=== PATIENT | female | born 1980 | race Caucasian/White ===

== ENCOUNTER 2017-12-21 09:42 | Inpatient (IN) | payer MEDICAID ==
[2017-12-21] VITALS (7 sets, daily range): BP systolic 110–179; BP diastolic 65–94
[~2017-12-21] VITALS: Ht 162.6 cm; Wt 71.0 kg
[~2017-12-21 09:42] MED LIST: CLIN150C99 PO; CLON-527 PO; KEP500T PO; LORA-269 PO; MECL12.5 PO; ONDA4TAB59 PO
[2017-12-21 10:11] LABS: BASOPHILS # (AUTO) 0.1 X10'3 (0-0.2); BASOPHILS % (AUTO) 0.6 % (0-1); EOSINOPHILS % (AUTO) 0.3 % (0-6); HEMATOCRIT 43.4 % (35.0-45.0); HEMOGLOBIN 14.6 g/dl (12.0-16.0); LYMPHOCYTES # (AUTO) 2.5 X10'3 (1.1-4.8); LYMPHOCYTES % (AUTO) 23.5 % (21-51); MEAN CORPUSCULAR HEMOGLOBIN 28.4 PG (27.0-31.0); MEAN CORPUSCULAR HGB CONC 33.6 % (33.0-36.5); MEAN CORPUSCULAR VOLUME 84.5 FL (78-98); MEAN PLATELET VOLUME 7.5 FL (7.4-10.4); MONOCYTES # (AUTO) 0.5 X10'3 (0-0.9); MONOCYTES % (AUTO) 5.1 % (2-12); NEUTROPHILS # (AUTO) 7.4 X10'3 (1.8-7.7); NEUTROPHILS % (AUTO) 70.5 % (42-75); PLATELET COUNT 298 X10'3 (140-440); RED BLOOD COUNT 5.14 X10'6 (4.20-5.60); RED CELL DISTRIBUTION WIDTH 13.5 % (11.5-14.5); WHITE BLOOD COUNT 10.4 X10'3 (4.5-11.0)
[2017-12-21 10:19] LABS: INR 0.9 INR; PROTHROMBIN TIME 9.8 SECONDS (9.0-12.0)
[2017-12-21 10:25] LABS: ALANINE AMINOTRANSFERASE 35 U/L (12-78); ALBUMIN 3.9 G/DL (3.4-5.0); ALBUMIN/GLOBULIN RATIO 0.9 (1.1-1.5); ALKALINE PHOSPHATASE 49 IU/L (46-116); ANION GAP 10 (8-16); ASPARTATE AMINO TRANSFERASE 23 U/L (10-37); BILIRUBIN,TOTAL 0.3 MG/DL (0.1-1.0); BLOOD UREA NITROGEN 12 MG/DL (7-18); BUN/CREATININE RATIO 13.5 (6.6-38.0); CALCIUM 9.9 MG/DL (8.5-10.1); CHLORIDE 103 MMOL/L (99-107); CREATININE 0.89 MG/DL (0.40-0.90); GLUCOSE 112 MG/DL (70-104); POTASSIUM 4.1 MMOL/L (3.5-5.1); SODIUM 138 MMOL/L (135-145); TOTAL CARBON DIOXIDE 24.6 MMOL/L (24-32); TOTAL PROTEIN 8.2 G/DL (6.4-8.2); eGFR 72 ML/MIN
[2017-12-21] MEDS ORDERED: normal saline 1000ml 1,000 ML IV ONE (11:10)
[2017-12-21] MEDS ORDERED: HYDROmorphone 1 mg/ml syringe IV ONE (11:10)
[2017-12-21] MEDS ORDERED: ondansetron/PF 4mg/2ml inj IV ONE (11:10)
[2017-12-21] MEDS ORDERED: famotidine/PF 10 mg/ml inj IV ONE (11:55)
[2017-12-21] MEDS ORDERED: octreotide inj. 1,250 MCG in normal saline 250ml IV soln 250 ML IV ONE (11:55)
[2017-12-21] MEDS ORDERED: pantoprazole 40 MG vial IV ONE (11:55)
[2017-12-21] MEDS ORDERED: normal saline 1000ML IV soln IV ONE (11:55)
[2017-12-21] MEDS ORDERED: metoclopramide 5 mg/ml inj IV ONE ×2 (12:15→13:30)
[2017-12-21] MEDS ORDERED: LORA-269 PO (13:02)
[2017-12-21] MEDS ORDERED: IBUP-24 PO (13:03)
[2017-12-21] MEDS ORDERED: potassium Cl 40MEQ/NS 500ml 500 ML IV PRN ×2 (13:15)
[2017-12-21] MEDS ORDERED: dextrose 50%-water 50ml dispensing syringe IV PRN (13:15)
[2017-12-21] MEDS ORDERED: magnesium 4gm in 100ml NS 100 ML IV PRN (13:15)
[2017-12-21] MEDS ORDERED: morphine 4 MG/ML inj SYRINge IV PRN (13:15)
[2017-12-21] MEDS ORDERED: LORazepam 2 mg/ml vial IV PRN (13:15)
[2017-12-21] MEDS ORDERED: acetaminophen 325mg tablet PO PRN (13:15)
[2017-12-21] MEDS ORDERED: ondansetron/PF 4mg/2ml inj IV PRN (13:15)
[2017-12-21] MEDS ORDERED: magnesium 1gm/100ml D5W IVPB 100 ML IV PRN (13:15)
[2017-12-21] MEDS ORDERED: magnesium Cl slow-release 64mg tablet PO PRN (13:15)
[2017-12-21] MEDS ORDERED: potassium Cl 20 mEq SR tablet PO PRN ×2 (13:15)
[2017-12-21] MEDS: pantoprazole 40MG/NS 100ML BAG 100 ML IV SCH ×4 (13:18→22:56)
[2017-12-21] MEDS ORDERED: morphine 4 MG/ML inj SYRINge IV ONE (13:30)
[2017-12-21] MEDS ORDERED: fentaNYL/PF 50MCG/1 ML 2ML syringe ONE (13:31)
[2017-12-21] MEDS ORDERED: MIDAZolam 5mg/5ml vial ONE (13:31)
[2017-12-21] MEDS ORDERED: LIDOcaine Viscous 15ml cup ONE (13:32)
[2017-12-21] MEDS ORDERED: pantoprazole 40MG/NS 100ML BAG 100 ML IV SCH ×2 (16:00)
[2017-12-21 16:27] LABS: URINE HCG NEGATIVE (NEG)
[2017-12-21 16:30] LABS: CLARITY,URINE CLEAR (Clear); COLOR,URINE YELLOW (Yellow); GLUCOSE, URINE NEGATIVE (Neg); KETONES,URINE 15 mg/dl (Neg); LEUKOCYTE ESTERASE ,URINE NEGATIVE (Neg); NITRITES, URINE NEGATIVE (Neg); OCCULT BLOOD,URINE NEGATIVE (Neg); PH,URINE 6.5 (4.8-8.0); PROTEIN,URINE NEGATIVE (Neg); UROBILINOGEN,URINE 0.2 E.U/dL (0.2-1.0)
[2017-12-21 16:31] LABS: UA COLLECTION TYPE CLN CATCH MIDSTREAM
[2017-12-21 16:41] LABS: URINE AMPHETAMINE SCREEN NEGATIVE (Neg); URINE BARBITUATE SCREEN NEGATIVE (Neg); URINE BENZODIAZEPINES SCREEN POSITIVE (Neg); URINE CANNABINOID SCREEN POSITIVE (Neg); URINE COCAINE SCREEN NEGATIVE (Neg); URINE METHADONE SCREEN NEGATIVE (Neg); URINE OPIATE SCREEN POSITIVE (Neg); URINE PHENCYCLIDINE SCREEN NEGATIVE (Neg)
[2017-12-21] MEDS: normal saline 1000ml 1,000 ML IV SCH ×2 (17:26→19:47)
[2017-12-21] MEDS: morphine 4 MG/ML inj SYRINge IV PRN (20:47)
[2017-12-22] VITALS: BP 124/79
[2017-12-22] MEDS: morphine 4 MG/ML inj SYRINge IV PRN ×2 (03:14→09:18)
[2017-12-22] MEDS: pantoprazole 40MG/NS 100ML BAG 100 ML IV SCH (03:32)
[2017-12-22 05:13] LABS: BASOPHILS # (AUTO) 0.1 X10'3 (0-0.2); BASOPHILS % (AUTO) 0.6 % (0-1); EOSINOPHILS # (AUTO) 0.1 X10'3 (0-0.9); EOSINOPHILS % (AUTO) 1.2 % (0-6); HEMATOCRIT 37.4 % (35.0-45.0); HEMOGLOBIN 12.7 g/dl (12.0-16.0); LYMPHOCYTES # (AUTO) 3.6 X10'3 (1.1-4.8); LYMPHOCYTES % (AUTO) 32.8 % (21-51); MEAN CORPUSCULAR HEMOGLOBIN 28.6 PG (27.0-31.0); MEAN CORPUSCULAR VOLUME 84.1 FL (78-98); MEAN PLATELET VOLUME 8.3 FL (7.4-10.4); MONOCYTES # (AUTO) 0.8 X10'3 (0-0.9); MONOCYTES % (AUTO) 7.6 % (2-12); NEUTROPHILS # (AUTO) 6.4 X10'3 (1.8-7.7); NEUTROPHILS % (AUTO) 57.8 % (42-75); PLATELET COUNT 232 X10'3 (140-440); RED BLOOD COUNT 4.45 X10'6 (4.20-5.60); RED CELL DISTRIBUTION WIDTH 13.4 % (11.5-14.5)
[2017-12-22 05:30] LABS: ALANINE AMINOTRANSFERASE 26 U/L (12-78); ALBUMIN/GLOBULIN RATIO 0.9 (1.1-1.5); ALKALINE PHOSPHATASE 38 IU/L (46-116); ANION GAP 9 (8-16); ASPARTATE AMINO TRANSFERASE 19 U/L (10-37); BILIRUBIN,TOTAL 0.3 MG/DL (0.1-1.0); BLOOD UREA NITROGEN 9 MG/DL (7-18); BUN/CREATININE RATIO 11.1 (6.6-38.0); CALCIUM 8.1 MG/DL (8.5-10.1); CHLORIDE 105 MMOL/L (99-107); CREATININE 0.81 MG/DL (0.40-0.90); GLUCOSE 116 MG/DL (70-104); POTASSIUM 3.7 MMOL/L (3.5-5.1); SODIUM 137 MMOL/L (135-145); TOTAL CARBON DIOXIDE 23.5 MMOL/L (24-32); TOTAL PROTEIN 6.4 G/DL (6.4-8.2); eGFR 80 ML/MIN
[2017-12-22 08:00] VITALS: BP 139/76
[2017-12-22] MEDS ORDERED: K and/or MAG REPLACEMENT MC SCH (08:00)
[2017-12-22 08:54] LABS: OCCULT BLOOD STOOL NEGATIVE (Neg)
[2017-12-22] MEDS ORDERED: PANT40TA4 PO (10:40)
[2017-12-22 11:00] VITALS: BP 175/94
== END 2017-12-22 13:55 | disposition home or self-care (01) | DRG 241 ==
LOC: ER 09:42 → ED HOLD 13:12 → EDBEDREQ 15:37 → SUR 3N 16:17
PROVIDERS: ADMIT Internal Medicine; ATTEND Internal Medicine
PROC: 0DB68ZX Excision of Stomach, Via Natural or Artificial Opening Endoscopic, Diagnostic (ICD-10-PCS; principal; 2017-12-21)
DX: K25.4 Chronic or unspecified gastric ulcer with hemorrhage (principal); F12.90 Cannabis use, unspecified, uncomplicated; G40.909 Epilepsy, unspecified, not intractable, without status epilepticus; F41.9 Anxiety disorder, unspecified; J45.909 Unspecified asthma, uncomplicated; F32.9 Major depressive disorder, single episode, unspecified; Z90.49 Acquired absence of other specified parts of digestive tract; Z79.899 Other long term (current) drug therapy
CPT/HCPCS: 36415; 43239; 71045; 76700; 80053; 80305; 80320; 81003; 81025; 82272; 85025; 85610; 86885; 86900; 86901; 87070; 93005; 96374; 96375; 99285; A4620; C9113; G0500; J1170; J2060; J2250; J2270; J2354; J2405; J2765; J3010; J3490; J7030

== ENCOUNTER 2018-07-23 06:07 | Day surgery (SDC) | payer MEDICAID ==
[2018-07-22 15:00] LABS: BASOPHILS # (AUTO) 0.1 X10'3 (0-0.2); BASOPHILS % (AUTO) 0.8 % (0-1); EOSINOPHILS % (AUTO) 0.3 % (0-6); LYMPHOCYTES # (AUTO) 3.3 X10'3 (1.1-4.8); MEAN CORPUSCULAR HEMOGLOBIN 27.9 PG (27.0-31.0); MEAN CORPUSCULAR HGB CONC 33.3 g/dL (33.0-36.5); MEAN CORPUSCULAR VOLUME 83.9 FL (78-98); MEAN PLATELET VOLUME 7.4 FL (7.4-10.4); MONOCYTES # (AUTO) 0.5 X10'3 (0-0.9); MONOCYTES % (AUTO) 4.5 % (2-12); NEUTROPHILS # (AUTO) 7.8 X10'3 (1.8-7.7); NEUTROPHILS % (AUTO) 66.4 % (42-75); PRE OP HEMATOCRIT 40.8 % (35.0-45.0); PRE OP HEMOGLOBIN 13.6 g/dL (12.0-16.0); PRE OP PLATELET COUNT 318 X10'3 (140-440); RED BLOOD COUNT 4.87 X10'6 (4.20-5.60); RED CELL DISTRIBUTION WIDTH 13.3 % (11.5-14.5)
[2018-07-22 15:18] LABS: ALBUMIN 3.9 G/DL (3.4-5.0); ALKALINE PHOSPHATASE 44 IU/L (46-116); BLOOD UREA NITROGEN 14 MG/DL (7-18); BUN/CREATININE RATIO 17.1 (6.6-38.0); CALCIUM 9.1 MG/DL (8.5-10.1); CHLORIDE 103 MMOL/L (99-107); CREATININE 0.82 MG/DL (0.40-0.90); PRE OP ALT 38 U/L (30-65); PRE OP ANION GAP 10 (8-16); PRE OP AST 23 U/L (10-37); PRE OP BILIRUB, TOTAL 0.3 MG/DL (0.0-1.0); PRE OP GLUCOSE 133 MG/DL (70-104); PRE OP POTASSIUM 3.4 MMOL/L (3.4-5.1); PRE OP SODIUM 139 MMOL/L (135-145); TOTAL CARBON DIOXIDE 26.2 MMOL/L (24-32); TOTAL PROTEIN 7.8 G/DL (6.4-8.2); eGFR 78 ML/MIN
[2018-07-22 15:31] LABS: HCG SERUM QL NEGATIVE
[2018-07-23] VITALS (14 sets, daily range): BP systolic 118–150; BP diastolic 65–96
[~2018-07-23] VITALS: Ht 167.6 cm; Wt 71.0 kg
[~2018-07-23 06:07] MED LIST changes: -CLIN150C99 PO; +CLON-514 PO; -CLON-527 PO; -KEP500T PO; -LORA-269 PO; -MECL12.5 PO; -ONDA4TAB59 PO; +PANT-47 PO; +ceFAZolin 2gm in dextrose, iso 100 ML IV ONE; +famotidine 20mg tablet PO ONE; +ringers solution, lacted 1,000 ML IV SCH
[2018-07-23] MEDS ORDERED: LIDOcaine 1% (10mg/ml) 2ml vial ONE (06:30)
[2018-07-23] MEDS ORDERED: BUPIVAcaine/PF 2.5mg/ml (0.25%) 10ml vial ONE (07:28)
[2018-07-23] MEDS ORDERED: fentaNYL/PF 50MCG/1 ML 2ML syringe ONE (08:29)
[2018-07-23] MEDS ORDERED: midazolam 2 mg/2 ml injection ONE (08:30)
[2018-07-23] MEDS ORDERED: glycopyrrolate 0.2mg/ml inj ONE (08:35)
[2018-07-23] MEDS ORDERED: neostigmine methylsulfate 1 MG/ML 10ml vial ONE (08:35)
[2018-07-23] MEDS ORDERED: sevoflurane 250ml liquid IH ONE (08:35)
[2018-07-23] MEDS ORDERED: LIDOcaine 2% 5ml jelly ONE (08:49)
[2018-07-23] MEDS ORDERED: rocuronium 10mg/ml inj IV ONE (09:11)
[2018-07-23] MEDS ORDERED: propofol inj 20 ML IV ONE (09:11)
[2018-07-23] MEDS ORDERED: dexamethasone sod phosphate 4mg/ml inj. ONE (09:12)
[2018-07-23] MEDS ORDERED: ondansetron/PF 4mg/2ml inj ONE (09:12)
[2018-07-23] MEDS ORDERED: ketorolac trometh. 30mg/ml inj. ONE (09:12)
[2018-07-23] MEDS ORDERED: ringers solution, lacted 1,000 ML IV SCH (09:14)
[2018-07-23] MEDS ORDERED: proCHLORperazine 10 MG/2 ml inj IV PRN (09:15)
[2018-07-23] MEDS ORDERED: morphine 4 MG/ML inj SYRINge IV PRN ×2 (09:15)
[2018-07-23] MEDS ORDERED: meperidine/PF 25mg/ml syringe IV PRN ×3 (09:15)
[2018-07-23] MEDS ORDERED: ondansetron/PF 4mg/2ml inj IV PRN (09:15)
--- NOTE | 2018-07-23 09:45 | NUR ---
Received from OR via [facility], accompanied by Anesthesiologist DR. MURCIA and report given by Anesthesiolgist. PT ARRIVED SLEEPY BUT TALKING, O2 VIA MASK AT 10L. 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 DRESSING TO NECK CDI
--- NOTE | 2018-07-23 12:15 | NUR ---
PT DC READY. GARY PO FLUIDS WELL. DC INSTR READ TO PT AND , BOTH VERBALIZED UNDERSTANDING. IV DC. PT TO POV VIA WC FOR DC HOME
== END 2018-07-23 12:15 | disposition home or self-care (01) ==
LOC: PAS 06:07
PROVIDERS: ATTEND Surgery
DX: D17.0 Benign lipomatous neoplasm of skin and subcutaneous tissue of head, face and neck (principal); F41.9 Anxiety disorder, unspecified; Z87.891 Personal history of nicotine dependence; Z88.8 Allergy status to other drugs, medicaments and biological substances; Z72.89 Other problems related to lifestyle
CPT/HCPCS: 21555; 36415; 80053; 82948; 84703; 85025; A6255; A6449; J0690; J1100; J1885; J2175; J2250; J2405; J2704; J2710; J3010; J3490; A6250; A7000; J7120